=== PATIENT | female | born 1965 | race Caucasian/White ===

== ENCOUNTER 2019-07-05 14:04 | Emergency (ER) | payer OTHER ==
[2019-07-05] MEDS ORDERED: Sodium Chloride 0.9% 10 ML Syringe FLUSH PRN (14:53)
[2019-07-05] MEDS ORDERED: HYDROmorphone 1 MG/ML Syringe IVPUSH ONE (14:53)
[2019-07-05] MEDS ORDERED: Metoclopramide 10 MG/2 ML SDV IVPUSH ONE (15:00)
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
--- NOTE | 2019-07-05 15:53 | CT ---
Head CT Technique: Multiple axial sections through the brain were obtained. Intravenous contrast was not utilized. Comparison: No prior intracranial imaging. Findings: Ventricles along with basal cisterns and sulci over the convexities are within normal limits for the patient's age. No abnormal parenchymal densities are seen. No evidence of intracranial hemorrhage. No midline shift or mass-effect is seen. Bone window settings were reviewed. Visualized mastoid sinuses and visualized paranasal sinuses show nothing acute. No acute calvarial finding is seen. Impression: 1. Nothing acute is appreciated on noncontrast head CT study. Diagnostic code #1 This report was dictated in MDT
--- NOTE | 2019-07-05 15:55 | CT ---
CT cervical spine Technique: Multiple axial sections were obtained from above C1 inferiorly to the top of T3. Reconstructed sagittal and coronal images were reviewed. Comparison: No prior cervical spine imaging. Findings: Mild degenerative change is noted between the dens and anterior arch of C1. Moderate disc space narrowing noted at C3-4 with minimal spondylolisthesis felt to be due to degenerative apophyseal change. Moderate right-sided neural foraminal stenosis is seen at C3-4. Left neural foramen is patent at C3-4. C4-5 disc is severely narrowed. Posterior osteophytes are seen. Mild right-sided neural foraminal stenosis is seen. Left neural foramina is patent. No central canal stenosis is seen. Slight vacuum disc phenomena is noted. C5-6 disc shows moderate disc space narrowing. No central canal stenosis or neural foraminal stenosis is seen. C6-C7 disc is moderately narrowed. No central canal stenosis or neural foraminal stenosis is seen. C7-T1 disc shows moderate disc space narrowing . No central canal stenosis or neural foraminal stenosis is seen. T1-2 disc shows mild disc space narrowing. No central canal stenosis or neural foraminal stenosis is seen. T2-3 disc shows mild disc space narrowing with no central canal stenosis or neural foraminal stenosis. No fracture is identified. Kyphosis is seen most likely relating to positioning. Slight degenerative spurring is noted within the uncovertebral joints at C3-4 through C5-6. Impression: 1. Mild diffuse degenerative change. 2. Nothing acute is appreciated on CT study of the cervical spine. Diagnostic code #2 This report was dictated in MDT
[2019-07-05] MEDS ORDERED: diphenhydrAMINE 50 MG/ML SDV IVPUSH ONE (16:20)
[2019-07-05] MEDS ORDERED: Ketorolac 30 MG/ML SDV IVPUSH ONE (16:20)
== END 2019-07-05 16:45 | disposition home or self-care (01) ==
LOC: JD.ED 14:04
DX: S06.0X0A Concussion without loss of consciousness, initial encounter (principal); S16.1XXA Strain of muscle, fascia and tendon at neck level, initial encounter; R11.0 Nausea; V59.59XA Passenger in pick-up truck or van injured in collision with other motor vehicles in traffic accident, initial encounter; Y92.410 Unspecified street and highway as the place of occurrence of the external cause
CPT/HCPCS: 70450; 72125; 96374; 96375; 99284; J1170; J1200; J1885; J2765